=== PATIENT | female | born 1965 | race Caucasian/White ===

== ENCOUNTER 2017-08-23 10:41 | Inpatient (IN) | payer SELFPAY ==
[2017-08-23] MEDS ORDERED: Ondansetron HCl/PF 4 MG/2 ML Vial IVP PRN (12:34)
[2017-08-23] MEDS ORDERED: Ondansetron ODT 4 MG TAB PO PRN (12:34)
[2017-08-23] MEDS ORDERED: Acetaminophen 325 MG TAB PO PRN (12:34)
[2017-08-23] MEDS ORDERED: Artificial Tear Sol 15 ML BOT EA EYE PRN (12:40)
[2017-08-23] MEDS ORDERED: hydrALAZINE 20 MG/ML VIAL SLOW IVP PRN (12:40)
[2017-08-23] MEDS ORDERED: Temazepam 15 MG CAP PO PRN (12:40)
[2017-08-23] MEDS ORDERED: Diabetic Tussin 200 MG/10 ML UDCUP PO PRN (12:40)
[2017-08-23] MEDS ORDERED: Loratadine 10 MG TAB PO PRN (12:40)
[2017-08-23] MEDS ORDERED: Loperamide HCl 2 MG CAP PO PRN (12:40)
[2017-08-23] MEDS ORDERED: Sodium Chloride 0.65% Nasal 44 ML BOT EA NARE PRN (12:40)
[2017-08-23] MEDS ORDERED: Mag-Al 1200 mg/1200 mg/30 ML UDCUP PO PRN (12:40)
[2017-08-23] MEDS ORDERED: Chloraseptic Spray 180 ml Bottle PO PRN (12:40)
[2017-08-23] MEDS ORDERED: Eucerin (Mineral Oil/Petrolatum,White) 30 gm Jar TOP PRN (12:40)
[2017-08-23] MEDS ORDERED: Milk Of Magnesia 30 ML UDCUP PO PRN (12:40)
[2017-08-23] MEDS ORDERED: Labetalol HCl 100 MG/20 ML VIAL SLOW IVP PRN (12:47)
[2017-08-23] MEDS ORDERED: hydrALAZINE 20 MG/ML VIAL SLOW IVP SCH (13:00)
--- NOTE | 2017-08-23 13:55 | MRI ---
BRAIN MRI WITH AND WITHOUT CONTRAST: HISTORY: Left temporal lobe mass. Recent CT. Headache. Altered mental status. Speech impairment, onset 1 w [place] ago. COMPARISON: None. CORRELATION: Noncontrast head CT 08/31/17. TECHNIQUE: Brain MRI is performed with and without intravenous Gadolinium administration. Multisequential, mult iplanar imaging is performed. FINDINGS: There is hemosiderin deposition along the periphery as well as along the enhancing component of the m ass centered in the left temporal lobe. There is vasogenic edema and sulcal effacement involving the left temporal, frontal, and parietal lobes. There is mass effect upon the left lateral ventricle. There is left to right subfalcine herniation of approximately 1.2 cm. There is effacement of the sup rasellar cistern and left ambient cistern. There is mass effect upon the left mid brain. There is l eft uncal herniation. There is peripheral as well as linear enhancement involving aforementioned mas s. This mass measures 5.7 x 4.8 x 4.6 cm. Additional areas of abnormal enhancement are not apprecia kamaljit. Calvarium has a normal T1 marrow signal intensity. Adequate aeration of the sinuses and mastoid air cells. Central arterial flow voids are maintained. Absent restricted diffusion. 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 Areas of peripheral and linear enhancement ar e noted. Some of these areas have associated hemosiderin deposition on the axial gradient echo seque nce. Primary neoplasm (high-grade neoplasm) is favored. POS: [facility]
--- NOTE | 2017-08-23 14:18 | HP ---
ATTENDING PHYSICIAN: Dr. Destin Soto. HISTORY OF PRESENT ILLNESS: The patient is a 52-year-old female with a past medical history of epile psy, managed by Dr. Miranda with Topamax and Tegretol; hypertension; diabetes who presented to the em ergency department for progressively worsening difficulty with her speech as well as some intermitten t confusion noticed by her family for the past week. A CT head was done on arrival, which was notabl e for a large left-sided frontotemporal intracranial mass with surrounding edema, left ventricle effa cement and a midline shift from left to right. The patient was treated with 10 mg of IV Decadron per my recommendations and I am seeing her at the bedside. She is alert. She has difficulty answering my questions secondary to her garbled speech. Pupils are equal and reactive to light. She is noted to have some right-sided facial droop as well as decreased learning designer strength in the right upper extremity . Remainder of her neurologic exam is intact. Her vitals are stable at this time. PAST MEDICAL HISTORY: Epilepsy, managed by Dr. Miranda with Tegretol and Topamax; diabetes; hyperten aren. PAST SURGICAL HISTORY: Tubal ligation, appendectomy, cholecystectomy. SOCIAL HISTORY: The patient does not smoke, drink or use any drugs. She is a former smoker, but lazaro t in 2016. ALLERGIES: The patient is allergic to CODEINE. REVIEW OF SYSTEMS: Per HPI. PHYSICAL EXAMINATION: VITAL SIGNS: Blood pressure 112/63, respiration rate of 15, the patient is 94% on room air, pulse is 65, temperature is 99.3 CONSTITUTIONAL: She appears comfortable in no acute distress. GCS of 14. HEAD: Normocephalic, atraumatic. EYES: PERRLA. Extraocular movements are intact. ENT: Oral mucosa is pink, intact and moist. No deviations at this time is appreciated. NECK: Nontender to palpation. Free active range of motion, no meningismus or nuchal rigidity. RESPIRATORY: She has a regular respiration rate. No evidence of dyspnea. CARDIOVASCULAR: Regular rate and rhythm. MUSCULOSKELETAL: She has good muscle tone to bilateral upper and lower extremities. She has slightl y decreased learning designer strength of the right upper extremity. No other focal motor weakness is appreciated . NEUROLOGIC: GCS of 15. She has a very garbled speech with inappropriate words during her conversati on. She has weakness with learning designer strength in the right upper extremity. Also, slight drift over the r ight upper extremity. ASSESSMENT AND PLAN: The patient presents for progressively worsening speech difficulty some confusi on and right-sided weakness for the past week. Her CT head shows a new large left-sided intracranial mass in the frontal temporal region with surrounding edema and mass effect. I have recommended an M RI with and without contrast for further characterization of this mass. The patient will be admitted to the ICU for close monitoring and q.1 neuro checks. I have consulted Speech Therapy as well for d ysphagia screening before resuming a regular diet. We will continue Decadron 4 mg q.6 hours as well as an H2 andrae. We will continue her current seizure medications. We will monitor blood pressure closely as well. Systolic blood pressure goal of 140. I have discussed this plan with Dr. Soto who is in agreement. Please reach out to Neurosurgery for additional questions or concerns.
--- NOTE | 2017-08-23 14:31 | CON ---
DATE OF CONSULTATION: 08/23/2017 PRIMARY CARE PHYSICIAN: Kimberly Holcomb D.O. REASON FOR ADMISSION: Transfer from [facility] for left brain mass with herniation. HISTORY OF PRESENT ILLNESS: A 52-year-old female who has seizure disorder. She was brought to [facility] for altered mental status. The patient's family member reports that about 1 month, the patient has on and off headache. For the last one week, her intensity and severity of headache is getting worse. She is getting 3-4 times severe headache requiring pain medication, but lately pain medication was not working. For the last 1 week, the patient has also increasing confusion, slurred speech, patient is not comprehending and she is feeling more and more weak. The patient also has increased frequency of seizure for last one week. The patient was completely incoherent, confused and that is why family member took her to [facility] where she was found with a left-sided brain mass and subsequently this patient was transferred to our hospital for higher level of care. The patient had MRI brain and the patient is already admitted under neurosurgeon and we are consulted for medical co-management. Patient denies any fever or chills. She denies any associated nausea, vomiting , diarrhea. She denies any UTI symptoms. She denies any focal motor symptoms or sensory symptoms, but the patient's family member reports that her gait was wobbly lately. She was not maintaining her balance. She did not have any fall or fall related injury. She denies any incontinence of urine or stool. She denies any hematochezia or melena. She denies any abdominal pain. She denies any chest pain, palpitation, shortness of breath, orthopnea, PND. ALLERGIES: CODEINE SULFATE. PCN CURRENT HOME MEDICATIONS: Topamax 100 mg twice daily, Protonix 40 mg p.o. daily , Tegretol 200 mg p.o. twice daily. PAST MEDICAL HISTORY: Epilepsy, gastroesophageal reflux disease, obesity. PAST SURGICAL HISTORY: Appendicectomy, cholecystectomy. PAST PSYCHIATRIC HISTORY: Reviewed and negative. SOCIAL HISTORY: The patient lives at home with family. She is a former smoker. She quit smoking in 2016. She denies any alcohol or other illicit drug abuse. FAMILY HISTORY: No strong family history of premature coronary artery disease, stroke or cancer. REVIEW OF SYSTEMS: The following complete review of systems was negative, unless otherwise mentioned in the HPI or below: Constitutional: Weight loss or gain, ability to conduct usual activities. Skin: Rash, itching. Eyes: Double vision, pain. ENT/Mouth: Nose bleeding, neck stiffness, pain, tenderness. Cardiovascular: Palpitations, dyspnea on exertion, orthopnea. Respiratory: Shortness of breath, wheezing, cough, hemoptysis, fever or night sweats. Gastrointestinal: Poor appetite, abdominal pain, heartburn, nausea, vomiting, constipation, or diarrhea. Genitourinary: Urgency, frequency, dysuria, nocturia. Musculoskeletal: Pain, swelling. Neurologic/Psychiatric: Anxiety, depression. Allergy/Immunologic: Skin rash, bleeding tendency. Please see my HPI for pertinent positive and negative. All other review of systems reviewed and negative except as mentioned in the HPI. Review of system is little bit unreliable due to level of her cognitive status. EMERGENCY ROOM COURSE: Reviewed. PHYSICAL EXAMINATION: VITAL SIGNS: On arrival, blood pressure 131/73, pulse 70, respiratory rate 17, temperature 99.3, saturation 92% on room air, weight 114 kilograms. GENERAL: The patient is currently alert, awake, no obvious acute distress. HEAD: Normocephalic, atraumatic. EYES: Pupils round, reactive to light. Extraocular muscle intact. No nystagmus. ENT: Oropharynx within normal limits. Moist mucous membranes, no oral lesion, no pharyngeal erythema, no exudate. NECK: Supple, no JVD, no thyromegaly, no carotid bruit, no jugular venous distention. LUNGS: Clear to auscultation without any rhonchi or rales. CARDIAC: S1, S2 appears regular. No murmur, no gallop, no rub. ABDOMEN: Soft, bowel sounds present, nontender, nondistended. No organomegaly , no mass, no suprapubic tenderness. BACK: Unremarkable, no CVA tenderness. EXTREMITIES: Upper extremity: Passive movements of all joints are normal. Lower extremities: No edema. Good peripheral pulsation. NEUROLOGIC: Patient opens eyes spontaneously. Her speech appears a little bit slurred. Patient does have pronator drip on the right side and weakness on the right side. Patient also has a little bit sensory deficit on the right arm. No cerebellar sign. No nystagmus, no skew deviation. SKIN: No skin rash. HEMATOLOGIC: No lymphadenopathy. PSYCHIATRIC: Normal affect. SIGNIFICANT LABS: pvc monitor showing normal sinus rhythm without any ischemic changes. MRI brain reviewed. CT brain negative for any acute intracranial process. CBC: WBC 9.2, hemoglobin 12.9, platelet 310. ESR 44. BMP: Sodium 144, potassium 3.8, chloride 108, carbon dioxide 24, anion gap 15, BUN 11, creatinine 0.71, glucose 120, calcium 9.3. Lactic acid 1.8. LFT: AST 32, ALT 28, alkaline phosphatase 83, albumin 4.2, CK-MB 1.0, troponin I less than 0.010. TSH 1.25. Serum drug screen negative. MRI brain reported as primary neoplasm in left temporal lobe. ASSESSMENT: 1. Acute encephalopathy, likely due to intracranial mass with vasogenic edema. 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 3. Hypokalemia. 4. Seizure disorder with epilepsy. 5. Intermittent intractable headache. 6. Morbid obesity. PLAN: The patient is admitted under neurosurgeon to CCU/IMCU. Patient will be given IV fluid with potassium. Patient will be given Decadron 4 mg IV q.6 hourly for vasogenic edema. Continue Tegretol 200 mg twice daily, Topamax 100 mg p.o. twice day. Seizure precaution. Primary team is neurosurgeon and they will decide about surgical treatment for brain mass. Patient will need PT, OT, and neuro check. Eventual plan possibly to rehabilitation. Deep venous thrombosis prophylaxis. Only sequential compression device boots, no Lovenox because of brain mass to prevent any intracranial bleeding. Gastrointestinal prophylaxis, Pepcid 20 mg twice daily. Code status: The patient is FULL CODE. The patient's is surrogate decision maker. Disposition plan based on clinical course. We are expecting patient's stay in hospital more than 2 midnights. Plan of care discussed with the family member at bedside in the emergency room. Thank you for the consult. We will follow up with you while in hospital. SARI
[2017-08-23 15:36] VITALS: BMI 39.3
[2017-08-23] MEDS: NS 0.9% w/ 20 MEQ KCL 1,000 ML/1,000 ML BAG IV SCH (16:07)
[2017-08-23] MEDS: carBAMazepine 200 MG TAB PO SCH (16:08)
[2017-08-23] MEDS: Dexamethasone 4 mg/ml Vial SLOW IVP SCH ×2 (17:39→23:52)
[2017-08-23] MEDS ORDERED: Famotidine/PF 20 mg/2ml Vial SLOW IVP SCH (21:00)
[2017-08-23] MEDS: Topiramate 100 MG TAB PO SCH (21:14)
[2017-08-23] MEDS: Docusate 100 MG CAP PO SCH (21:14)
[2017-08-23] MEDS ORDERED: Famotidine 20 MG TAB PO SCH (21:30)
[2017-08-24] MEDS: NS 0.9% w/ 20 MEQ KCL 1,000 ML/1,000 ML BAG IV SCH ×2 (04:29→17:04)
[2017-08-24] MEDS: Dexamethasone 4 mg/ml Vial SLOW IVP SCH ×3 (05:40→17:04)
[2017-08-24] MEDS: Topiramate 100 MG TAB PO SCH ×2 (08:34→21:14)
[2017-08-24] MEDS: carBAMazepine 200 MG TAB PO SCH ×2 (08:34→17:03)
[2017-08-24] MEDS: Famotidine 20 MG TAB PO SCH ×2 (08:34→21:14)
[2017-08-24] MEDS: Docusate 100 MG CAP PO SCH ×2 (08:34→21:14)
--- NOTE | 2017-08-24 11:20 | PDOC.PN ---
- Subjective Encounter Start Date: 08/24/17 Encounter Start Time: 09:00 -: old records requested/rev Patient seen and examined. pt is confused, has naming problem, No overnight events - Objective MAR Reviewed: Yes Vital Signs & Weight: Vital Signs (12 hours) Temp Pulse Pulse Resp BP BP BP 08/24/17 08:50 70 125/67 08/24/17 08:22 98.2 F 55 L 18 08/24/17 07:10 98.2 F 55 L 18 116/65 08/24/17 04:51 98.7 F 59 L 18 108/68 08/24/17 00:00 98.4 F 54 L 18 127/68 Pulse Ox Pulse Ox 08/24/17 08:50 93 L 08/24/17 08:22 94 L 08/24/17 07:10 92 L 08/24/17 04:51 94 L 08/24/17 00:00 92 L Weight Weight 254 lb I&O: 08/23/17 08/24/17 08/25/17 06:59 06:59 06:59 Intake Total 1200 Output Total 1450 Balance -250 EKG Reviewed by me: Yes (nsr) Phys Exam - Physical Examination Constitutional: NAD HEENT: PERRLA, moist MMs, sclera anicteric Neck: no JVD, supple Respiratory: no wheezing, no rales, no rhonchi Cardiovascular: RRR, no significant murmur, no rub Gastrointestinal: soft, non-tender, no distention, positive bowel sounds Musculoskeletal: no edema, pulses present Neurological: moves all 4 limbs Lymphatic: no nodes Psychiatric: normal affect Skin: no rash, normal turgor Dx/Plan (1) Encephalopathy acute Code(s): G93.40 - ENCEPHALOPATHY, UNSPECIFIED Status: Acute (2) Hypokalemia Code(s): E87.6 - HYPOKALEMIA Status: Acute (3) Mass of temporoparietal region of brain Code(s): G93.9 - DISORDER OF BRAIN, UNSPECIFIED Status: Acute (4) GERD (gastroesophageal reflux disease) Code(s): K21.9 - GASTRO-ESOPHAGEAL REFLUX DISEASE WITHOUT ESOPHAGITIS Status: Chronic (5) Obesity (BMI 30-39.9) Code(s): E66.9 - OBESITY, UNSPECIFIED Status: Chronic (6) Seizure disorder Code(s): G40.909 - EPILEPSY, UNSP, NOT INTRACTABLE, WITHOUT STATUS EPILEPTICUS Status: Chronic - Plan cont current plan of care, plan discussed w/ family * medically stable * continue home medication for seizure * continue decadron * neurosurgeon to decide about surgery for brain mass * medication reviewed as below * symptomatic treatment * discussed with bedside. Review of Systems - Review of Systems Other: unable to review due to encephalopathy - Medications/Allergies Allergies/Adverse Reactions: Allergies Allergy/AdvReac Type Severity Reaction Status Date / Time codeine Allergy Rash Verified 08/23/17 16:06 Penicillins Allergy Verified 08/23/17 15:30 Medications: Current Medications Acetaminophen (Tylenol) 650 mg PO Q4H PRN PRN Reason: Headache/Fever or Pain Hydrocodone Bitart/Acetaminophen ([place] 5/325) 1 tab PO Q4H PRN PRN Reason: Moderate Pain (4-6) Al Hydroxide/Mg Hydroxide (Maalox) 15 ml PO Q4H PRN PRN Reason: Heartburn or Indigestion Artificial Tears (Tears Renewed 15ml Bottle) 0 drop EA EYE PRN PRN PRN Reason: Dry Eyes Carbamazepine (Tegretol) 200 mg PO BID-WM [facility] Last Admin: 08/24/17 08:34 Dose: 200 mg Dexamethasone (Decadron) 4 mg SLOW IVP Q6HR [facility] Last Admin: 08/24/17 05:40 Dose: 4 mg Docusate Sodium (Colace) 100 mg PO BID [facility] Last Admin: 08/24/17 08:34 Dose: 100 mg Famotidine (Pepcid) 20 mg PO Q12HR [facility] Last Admin: 08/24/17 08:34 Dose: 20 mg Guaifenesin (Robitussin Sf) 200 mg PO Q4H PRN PRN Reason: Cough Hydralazine HCl (Apresoline) 10 mg SLOW IVP Q4H PRN PRN Reason: Systolic BP > 180 Potassium Chloride/Sodium Chloride (Ns 0.9% W/ 20 Meq Kcl) 1,000 ml in 1,000 mls @ 75 mls/hr IV .[id number] [facility] Last Admin: 08/24/17 04:29 Dose: 1,000 mls Loperamide HCl (Imodium) 2 mg PO PRN PRN PRN Reason: Diarrhea/Loose Stools Loratadine (Claritin) 10 mg PO DAILYPRN PRN PRN Reason: Sinus Symptoms Magnesium Hydroxide (Milk Of Magnesium) 30 ml PO DAILYPRN PRN PRN Reason: Constipation Mineral Oil/White Petrolatum (Eucerin Cream) 0 gm TOP BIDPRN PRN PRN Reason: Dry Skin Morphine Sulfate (Morphine) 2 mg SLOW IVP Q4H PRN PRN Reason: Breakthrough Pain Ondansetron HCl (Zofran Odt) 4 mg PO Q6H PRN PRN Reason: Nausea/Vomiting Ondansetron HCl (Zofran) 4 mg IVP Q6H PRN PRN Reason: Nausea/Vomiting Phenol (Chloraseptic [place] 180 Ml Bot) 0 ml PO PRN PRN PRN Reason: Sore Throat Sodium Chloride ([place] Nasal [place] 0.65%) 0 ml EA NARE QIDPRN PRN PRN Reason: Nasal Congestion Temazepam (Restoril) 15 mg PO HSPRN PRN PRN Reason: Insomnia Topiramate (Topamax) 100 mg PO BID [facility] Last Admin: 08/24/17 08:34 Dose: 100 mg
[2017-08-24 12:04] LABS: INR-International Normal Ratio 1.1; PTT 28.3 SEC (22.9-36.1); Prothrombin Time 14.2 SEC (12.0-14.7)
[2017-08-25] MEDS: Dexamethasone 4 mg/ml Vial SLOW IVP SCH ×4 (00:39→17:25)
[2017-08-25] MEDS: NS 0.9% w/ 20 MEQ KCL 1,000 ML/1,000 ML BAG IV SCH ×3 (06:16→19:34)
[2017-08-25] MEDS ORDERED: Bacitracin Zinc Ointment 30 gm TUBE ONE (06:59)
[2017-08-25] MEDS ORDERED: Papaverine 60 MG/2 ML VIAL ONE (06:59)
[2017-08-25] MEDS ORDERED: Thrombin 5000 UNITS/5 ML VIAL ONE (06:59)
[2017-08-25] MEDS ORDERED: Levofloxacin 500 mg/D5W 100 ml Premix Bag ONE (07:53)
[2017-08-25] MEDS ORDERED: Clindamycin/D5W 900 mg/50 ml Premix Bag ONE (07:53)
[2017-08-25] MEDS ORDERED: Fentanyl 100 MCG/2 ML VIAL ONE ×2 (08:37→10:24)
[2017-08-25] MEDS: Docusate 100 MG CAP PO SCH ×2 (10:05→21:37)
[2017-08-25] MEDS: Topiramate 100 MG TAB PO SCH ×2 (10:05→21:45)
[2017-08-25] MEDS: carBAMazepine 200 MG TAB PO SCH ×2 (10:05→17:25)
[2017-08-25] MEDS: Famotidine 20 MG TAB PO SCH ×2 (10:05→21:37)
--- NOTE | 2017-08-25 10:56 | OP ---
DATE OF PROCEDURE: 08/25/2017 SURGEON: Destin Soto M.D. HIGH RISK CASE MANAGER: Eleanor Feldman PROCEDURES: Left frontotemporal craniotomy, resection of tumor, operating microscope. PROCEDURE IN DETAIL: The patient was brought to the operating room and intubated. She was positione d supine with the head turned to the right exposing the left frontotemporal region in the shabana cigar head holer. A standard frontotemporal incision was made in the scalp reflected anteriorly. A standard c raniotomy was performed and the dura similarly reflected anteriorly. We made a temporal corticotomy and immediately identified the tumor material. There was no distinct plane between tumor and brain. 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 We entered the cyst cavit y and evacuated proteinaceous cyst debris. Frozen section suggested hypercellular neoplasm. We proc eeded circumferentially to resect tumor, particularly aggressive anteriorly and superficially and les s aggressive deep and posteriorly. All of cyst cavity was evacuated and approximately half of the cy st wall was removed. The brain was then extensively irrigated, immaculate hemostasis was secured. T he dura was reinforced with Duragen artificial dura and the skull was replaced with titanium micropla johann and screws and the wound was then closed in anatomic layers.
[2017-08-25] MEDS ORDERED: HYDROmorphone 0.5 MG/0.5 ML SYRINGE ONE (11:01)
[2017-08-25] MEDS ORDERED: Ondansetron HCl/PF 4 MG/2 ML Vial ONE (15:31)
[2017-08-25] MEDS ORDERED: Lidocaine 1% PF 5 ML VIAL ONE (15:31)
[2017-08-25] MEDS ORDERED: Ketorolac Tromethamine 30 MG/ML VIAL ONE (15:31)
[2017-08-25] MEDS ORDERED: PROPOFOL 200 MG/20 ML VIAL ONE (15:31)
[2017-08-25] MEDS ORDERED: Labetalol 100 MG/20 ML MDV ONE (15:31)
[2017-08-25] MEDS ORDERED: Dexamethasone 20 MG/5 ML VIAL ONE (15:31)
[2017-08-25] MEDS ORDERED: Glycopyrrolate 0.2 MG/ML 5 ML SYRINGE ONE (15:31)
[2017-08-25] MEDS: Morphine 4 MG/ML VIAL SLOW IVP PRN ×2 (15:41→21:36)
--- NOTE | 2017-08-25 21:21 | PDOC.PN ---
- Subjective Encounter Start Date: 08/25/17 Encounter Start Time: 19:15 Patient seen and examined. No new complaints. No overnight events - Objective MAR Reviewed: Yes Vital Signs & Weight: Vital Signs (12 hours) Temp Pulse Ox 08/25/17 19:00 97.9 F 08/25/17 16:00 98.6 F 08/25/17 12:46 94 L 08/25/17 11:39 98 08/25/17 11:20 98.2 F Weight Weight 255 lb 11.2 oz Most Recent Monitor Data Heart Rate from ECG 78 NIBP 131/62 NIBP BP-Mean 81 Respiration from ECG 16 SpO2 97 I&O: 08/24/17 08/25/17 08/26/17 06:59 06:59 06:59 Intake Total 1200 3422 898 Output Total 1450 1850 1040 Balance -250 1572 -142 Result Diagrams: 08/26/17 03:20 08/26/17 03:20 EKG Reviewed by me: Yes (Tele SR) Phys Exam - Physical Examination Constitutional: NAD Respiratory: no wheezing, no rhonchi Cardiovascular: RRR, no rub Gastrointestinal: soft, non-tender, positive bowel sounds Dx/Plan - Plan DVT proph w/SCDs IMPRESSION: 1. 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 Hypokalemia 3. Morbid obesity BMI 40 4. Seizure disorder 5. GERD PLAN: * Cont Steroids * Cont current meds as below * Cont AEDs * Will follow Review of Systems - Review of Systems Respiratory: negative: Cough, Dry, Shortness of Breath, Hemoptysis, SOB with Excertion, Pleuritic Pain, Sputum, Wheezing Cardiovascular: negative: chest pain, palpitations, orthopnea, paroxysmal nocturnal dyspnea, edema, light headedness, other - Medications/Allergies Allergies/Adverse Reactions: Allergies Allergy/AdvReac Type Severity Reaction Status Date / Time codeine Allergy Rash Verified 08/23/17 16:06 Penicillins Allergy Verified 08/23/17 15:30 Medications: Current Medications Acetaminophen (Tylenol) 650 mg PO Q4H PRN PRN Reason: Headache/Fever or Pain Hydrocodone Bitart/Acetaminophen ([place] 5/325) 1 tab PO Q4H PRN PRN Reason: Moderate Pain (4-6) Al Hydroxide/Mg Hydroxide (Maalox) 15 ml PO Q4H PRN PRN Reason: Heartburn or Indigestion Artificial Tears (Tears Renewed 15ml Bottle) 0 drop EA EYE PRN PRN PRN Reason: Dry Eyes Carbamazepine (Tegretol) 200 mg PO BID-[facility] Last Admin: 08/25/17 17:25 Dose: 200 mg Dexamethasone (Decadron) 4 mg SLOW IVP Q6H [facility] Stop: 08/26/17 05:31 Last Admin: 08/25/17 17:25 Dose: 4 mg Dexamethasone (Decadron) 4 mg PO QID [facility] Stop: 08/27/17 21:01 Dexamethasone (Decadron) 4 mg PO TID [facility] Stop: 08/29/17 21:01 Dexamethasone (Decadron) 2 mg PO TID [facility] Stop: 08/30/17 21:01 Dexamethasone (Decadron) 2 mg PO BID [facility] Stop: 09/01/17 21:01 Docusate Sodium (Colace) 100 mg PO BID [facility] Last Admin: 08/25/17 10:05 Dose: Not Given Famotidine (Pepcid) 20 mg PO Q12HR [facility] Last Admin: 08/25/17 10:05 Dose: Not Given Guaifenesin (Robitussin Sf) 200 mg PO Q4H PRN PRN Reason: Cough Hydralazine HCl (Apresoline) 10 mg SLOW IVP Q4H PRN PRN Reason: Systolic BP > 180 Potassium Chloride/Sodium Chloride (Ns 0.9% W/ 20 Meq Kcl) 1,000 ml in 1,000 mls @ 75 mls/hr IV .[id number] [facility] Last Admin: 08/25/17 19:34 Dose: Not Given Loperamide HCl (Imodium) 2 mg PO PRN PRN PRN Reason: Diarrhea/Loose Stools Loratadine (Claritin) 10 mg PO DAILYPRN PRN PRN Reason: Sinus Symptoms Magnesium Hydroxide (Milk Of Magnesium) 30 ml PO DAILYPRN PRN PRN Reason: Constipation Mineral Oil/White Petrolatum (Eucerin Cream) 0 gm TOP BIDPRN PRN PRN Reason: Dry Skin Morphine Sulfate (Morphine) 2 mg SLOW IVP Q4H PRN PRN Reason: Breakthrough Pain Last Admin: 08/25/17 15:41 Dose: 2 mg Ondansetron HCl (Zofran Odt) 4 mg PO Q6H PRN PRN Reason: Nausea/Vomiting Ondansetron HCl (Zofran) 4 mg IVP Q6H PRN PRN Reason: Nausea/Vomiting Phenol (Chloraseptic [employer] 180 Ml Bot) 0 ml PO PRN PRN PRN Reason: Sore Throat Sodium Chloride ([place] Nasal [employer] 0.65%) 0 ml EA NARE QIDPRN PRN PRN Reason: Nasal Congestion Temazepam (Restoril) 15 mg PO HSPRN PRN PRN Reason: Insomnia Topiramate (Topamax) 100 mg PO BID [facility] Last Admin: 08/25/17 10:05 Dose: Not Given
[2017-08-26] MEDS: Dexamethasone 4 mg/ml Vial SLOW IVP SCH ×2 (00:28→05:08)
[2017-08-26] MEDS: NS 0.9% w/ 20 MEQ KCL 1,000 ML/1,000 ML BAG IV SCH (00:33)
[2017-08-26 03:32] LABS: Hemoglobin 10.7 g/dL (12.0-16.0); Platelet Count 304 thou/uL (130-400)
[2017-08-26 03:41] LABS: Albumin 3.7 g/dL (3.5-5.0); Anion Gap 8 mmol/L (10-20); BUN (Urea Nitrogen) 13 mg/dL (9.8-20.1); Calc. Creatinine Clearance 176 mL/min (70-130); Calcium 8.7 mg/dL (7.8-10.44); Carbon Dioxide 25 mmol/L (22-29); Chloride 111 mmol/L (98-107); Estimated GFR-MDRD Greater than 90; Glucose 123 mg/dL (70-105); Magnesium 2.1 mg/dL (1.6-2.6); Phosphorus 2.9 mg/dL (2.3-4.7); Potassium 3.9 mmol/L (3.5-5.1); Sodium 140 mmol/L (136-145)
[2017-08-26] MEDS: Morphine 4 MG/ML VIAL SLOW IVP PRN (03:45)
[2017-08-26] MEDS: carBAMazepine 200 MG TAB PO SCH ×2 (09:03→17:32)
[2017-08-26] MEDS: Docusate 100 MG CAP PO SCH ×2 (09:03→20:06)
[2017-08-26] MEDS: Famotidine 20 MG TAB PO SCH ×2 (09:03→20:06)
[2017-08-26] MEDS: Topiramate 100 MG TAB PO SCH ×2 (09:04→20:06)
[2017-08-26] MEDS: Dexamethasone 4 MG TAB PO SCH ×4 (09:04→20:07)
[2017-08-26] MEDS: HYDROcodone/Acetaminophen 5/325 mg Tablet PO PRN ×3 (10:41→20:07)
--- NOTE | 2017-08-26 13:08 | PDOC.PN ---
- Subjective Encounter Start Date: 08/26/17 Encounter Start Time: 09:00 Patient seen and examined. No new complaints. No overnight events. No new focal deficits or seizures. - Objective MAR Reviewed: Yes Vital Signs & Weight: Vital Signs (12 hours) Temp Pulse Resp BP Pulse Ox 08/26/17 12:03 97.1 F L 74 15 146/67 H 91 L 08/26/17 09:45 98.0 F 74 20 130/83 92 L 08/26/17 08:05 93 L 08/26/17 08:00 97.8 F 65 17 95 08/26/17 04:00 98.4 F Weight Weight 255 lb 11.2 oz Most Recent Monitor Data Heart Rate from ECG 73 NIBP 153/79 NIBP BP-Mean 108 Respiration from ECG 18 SpO2 89 I&O: 08/25/17 08/26/17 08/27/17 06:59 06:59 06:59 Intake Total 3422 1967 300 Output Total 1850 6242 530 Balance 1572 -748 -230 Result Diagrams: 08/26/17 03:20 08/26/17 03:20 Additional Labs: Accuchecks 08/26/17 11:04 POC Glucose 119 H EKG Reviewed by me: Yes (Tele SR) Phys Exam - Physical Examination Constitutional: NAD Respiratory: no wheezing, no rhonchi Cardiovascular: RRR, no rub Gastrointestinal: soft, non-tender, positive bowel sounds Musculoskeletal: no edema Neurological: moves all 4 limbs Dx/Plan - Plan DVT proph w/SCDs IMPRESSION: 1. 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 Hypokalemia - replaced 3. Morbid obesity BMI 40 4. Seizure disorder - on AED 5. GERD - on Pepcid PLAN: * Cont Steroids * Cont current meds as below * Cont AEDs * Will follow * Cont current meds as below Review of Systems - Review of Systems Respiratory: negative: Cough, Dry, Shortness of Breath, Hemoptysis, SOB with Excertion, Pleuritic Pain, Sputum, Wheezing Cardiovascular: negative: chest pain, palpitations, orthopnea, paroxysmal nocturnal dyspnea, edema, light headedness, other - Medications/Allergies Allergies/Adverse Reactions: Allergies Allergy/AdvReac Type Severity Reaction Status Date / Time codeine Allergy Rash Verified 08/23/17 16:06 Penicillins Allergy Verified 08/23/17 15:30 Medications: Current Medications Acetaminophen (Tylenol) 650 mg PO Q4H PRN PRN Reason: Headache/Fever or Pain Hydrocodone Bitart/Acetaminophen ([place] 5/325) 1 tab PO Q4H PRN PRN Reason: Moderate Pain (4-6) Last Admin: 08/26/17 10:41 Dose: 1 tab Al Hydroxide/Mg Hydroxide (Maalox) 15 ml PO Q4H PRN PRN Reason: Heartburn or Indigestion Artificial Tears (Tears Renewed 15ml Bottle) 0 drop EA EYE PRN PRN PRN Reason: Dry Eyes Carbamazepine (Tegretol) 200 mg PO BID-[facility] Last Admin: 08/26/17 09:03 Dose: 200 mg Dexamethasone (Decadron) 4 mg PO QID [facility] Stop: 08/27/17 21:01 Last Admin: 08/26/17 09:04 Dose: 4 mg Dexamethasone (Decadron) 4 mg PO TID [facility] Stop: 08/29/17 21:01 Dexamethasone (Decadron) 2 mg PO TID [facility] Stop: 08/30/17 21:01 Dexamethasone (Decadron) 2 mg PO BID [facility] Stop: 09/01/17 21:01 Docusate Sodium (Colace) 100 mg PO BID [facility] Last Admin: 08/26/17 09:03 Dose: 100 mg Famotidine (Pepcid) 20 mg PO Q12HR [facility] Last Admin: 08/26/17 09:03 Dose: 20 mg Guaifenesin (Robitussin Sf) 200 mg PO Q4H PRN PRN Reason: Cough Hydralazine HCl (Apresoline) 10 mg SLOW IVP Q4H PRN PRN Reason: Systolic BP > 180 Loperamide HCl (Imodium) 2 mg PO PRN PRN PRN Reason: Diarrhea/Loose Stools Loratadine (Claritin) 10 mg PO DAILYPRN PRN PRN Reason: Sinus Symptoms Magnesium Hydroxide (Milk Of Magnesium) 30 ml PO DAILYPRN PRN PRN Reason: Constipation Mineral Oil/White Petrolatum (Eucerin Cream) 0 gm TOP BIDPRN PRN PRN Reason: Dry Skin Morphine Sulfate (Morphine) 2 mg SLOW IVP Q4H PRN PRN Reason: Breakthrough Pain Last Admin: 08/26/17 03:45 Dose: 2 mg Ondansetron HCl (Zofran Odt) 4 mg PO Q6H PRN PRN Reason: Nausea/Vomiting Ondansetron HCl (Zofran) 4 mg IVP Q6H PRN PRN Reason: Nausea/Vomiting Phenol (Chloraseptic [place] 180 Ml Bot) 0 ml PO PRN PRN PRN Reason: Sore Throat Sodium Chloride ([place] Nasal [place] 0.65%) 0 ml EA NARE QIDPRN PRN PRN Reason: Nasal Congestion Temazepam (Restoril) 15 mg PO HSPRN PRN PRN Reason: Insomnia Topiramate (Topamax) 100 mg PO BID [facility] Last Admin: 08/26/17 09:04 Dose: 100 mg
[2017-08-27] MEDS: HYDROcodone/Acetaminophen 5/325 mg Tablet PO PRN ×3 (02:20→13:15)
[2017-08-27] MEDS: Dexamethasone 4 MG TAB PO SCH ×4 (08:20→20:44)
[2017-08-27] MEDS: Famotidine 20 MG TAB PO SCH ×2 (08:20→20:42)
[2017-08-27] MEDS: Topiramate 100 MG TAB PO SCH ×2 (08:20→20:42)
[2017-08-27] MEDS: Docusate 100 MG CAP PO SCH ×2 (08:20→20:42)
[2017-08-27] MEDS: carBAMazepine 200 MG TAB PO SCH ×2 (08:20→18:04)
--- NOTE | 2017-08-27 20:22 | PDOC.PN ---
- Subjective Encounter Start Date: 08/27/17 Encounter Start Time: 09:00 Patient seen and examined. No new complaints. No overnight events - Objective MAR Reviewed: Yes Vital Signs & Weight: Vital Signs (12 hours) Temp Pulse Resp BP Pulse Ox 08/27/17 15:05 97.9 F 68 20 138/80 97 08/27/17 11:05 97.5 F L 65 18 106/70 95 Weight Weight 255 lb 11.2 oz Most Recent Monitor Data Heart Rate from ECG 73 NIBP 153/79 NIBP BP-Mean 108 Respiration from ECG 18 SpO2 89 I&O: 08/26/17 08/27/17 08/28/17 06:59 06:59 06:59 Intake Total 1967 1295 500 Output Total 2715 2930 500 Balance -748 -1635 0 Result Diagrams: 08/26/17 03:20 08/26/17 03:20 Phys Exam - Physical Examination Constitutional: NAD Respiratory: no wheezing, no rhonchi Cardiovascular: RRR, no rub Gastrointestinal: soft, positive bowel sounds Musculoskeletal: no edema Neurological: moves all 4 limbs Dx/Plan - Plan DVT proph w/SCDs IMPRESSION: 1. 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 Hypokalemia - replaced 3. Morbid obesity BMI 40 4. Seizure disorder - on AED 5. GERD - on Pepcid PLAN: * Cont Steroids and AEDs * Cont current meds as below * GI prophylaxis * Will follow * Ambulate Review of Systems - Review of Systems Respiratory: negative: Cough, Dry, Shortness of Breath, Hemoptysis, SOB with Excertion, Pleuritic Pain, Sputum, Wheezing Cardiovascular: negative: chest pain, palpitations, orthopnea, paroxysmal nocturnal dyspnea, edema, light headedness, other - Medications/Allergies Allergies/Adverse Reactions: Allergies Allergy/AdvReac Type Severity Reaction Status Date / Time codeine Allergy Rash Verified 08/23/17 16:06 Penicillins Allergy Verified 08/23/17 15:30 Medications: Current Medications Acetaminophen (Tylenol) 650 mg PO Q4H PRN PRN Reason: Headache/Fever or Pain Hydrocodone Bitart/Acetaminophen ([place] 5/325) 1 tab PO Q4H PRN PRN Reason: Moderate Pain (4-6) Last Admin: 08/27/17 13:15 Dose: 1 tab Al Hydroxide/Mg Hydroxide (Maalox) 15 ml PO Q4H PRN PRN Reason: Heartburn or Indigestion Artificial Tears (Tears Renewed 15ml Bottle) 0 drop EA EYE PRN PRN PRN Reason: Dry Eyes Carbamazepine (Tegretol) 200 mg PO BID-[facility] Last Admin: 08/27/17 18:04 Dose: 200 mg Dexamethasone (Decadron) 4 mg PO QID [facility] Stop: 08/27/17 21:01 Last Admin: 08/27/17 18:04 Dose: 4 mg Dexamethasone (Decadron) 4 mg PO TID [facility] Stop: 08/29/17 21:01 Dexamethasone (Decadron) 2 mg PO TID [facility] Stop: 08/30/17 21:01 Dexamethasone (Decadron) 2 mg PO BID [facility] Stop: 09/01/17 21:01 Docusate Sodium (Colace) 100 mg PO BID [facility] Last Admin: 08/27/17 08:20 Dose: 100 mg Famotidine (Pepcid) 20 mg PO Q12HR [facility] Last Admin: 08/27/17 08:20 Dose: 20 mg Guaifenesin (Robitussin Sf) 200 mg PO Q4H PRN PRN Reason: Cough Hydralazine HCl (Apresoline) 10 mg SLOW IVP Q4H PRN PRN Reason: Systolic BP > 180 Loperamide HCl (Imodium) 2 mg PO PRN PRN PRN Reason: Diarrhea/Loose Stools Loratadine (Claritin) 10 mg PO DAILYPRN PRN PRN Reason: Sinus Symptoms Magnesium Hydroxide (Milk Of Magnesium) 30 ml PO DAILYPRN PRN PRN Reason: Constipation Mineral Oil/White Petrolatum (Eucerin Cream) 0 gm TOP BIDPRN PRN PRN Reason: Dry Skin Morphine Sulfate (Morphine) 2 mg SLOW IVP Q4H PRN PRN Reason: Breakthrough Pain Last Admin: 08/26/17 03:45 Dose: 2 mg Ondansetron HCl (Zofran Odt) 4 mg PO Q6H PRN PRN Reason: Nausea/Vomiting Ondansetron HCl (Zofran) 4 mg IVP Q6H PRN PRN Reason: Nausea/Vomiting Phenol (Chloraseptic [place] 180 Ml Bot) 0 ml PO PRN PRN PRN Reason: Sore Throat Sodium Chloride ([place] Nasal [place] 0.65%) 0 ml EA NARE QIDPRN PRN PRN Reason: Nasal Congestion Temazepam (Restoril) 15 mg PO HSPRN PRN PRN Reason: Insomnia Topiramate (Topamax) 100 mg PO BID [facility] Last Admin: 08/27/17 08:20 Dose: 100 mg
[2017-08-28 07:41] VITALS: BP 123/68; TEMP 97.6
[2017-08-28] MEDS: carBAMazepine 200 MG TAB PO SCH (08:01)
[2017-08-28] MEDS: HYDROcodone/Acetaminophen 5/325 mg Tablet PO PRN (08:01)
[2017-08-28] MEDS: Docusate 100 MG CAP PO SCH (08:01)
[2017-08-28] MEDS: Topiramate 100 MG TAB PO SCH (08:01)
[2017-08-28] MEDS ORDERED: Dexamethasone 4 MG TAB PO SCH (09:00)
[2017-08-28] MEDS: Famotidine 20 MG TAB PO SCH (10:46)
--- NOTE | 2017-08-28 15:11 | PDOC.PN ---
- Subjective Encounter Start Date: 08/28/17 Encounter Start Time: 07:00 Patient seen and examined. No new complaints. No overnight events - Objective MAR Reviewed: Yes Vital Signs & Weight: Vital Signs (12 hours) Temp Pulse Resp BP Pulse Ox 08/28/17 08:00 97.6 F 64 16 95 08/28/17 07:26 97.6 F 64 16 123/68 95 08/28/17 03:56 97.9 F 63 16 119/78 96 Weight Weight 255 lb 11.2 oz Most Recent Monitor Data Heart Rate from ECG 73 NIBP 153/79 NIBP BP-Mean 108 Respiration from ECG 18 SpO2 89 I&O: 08/27/17 08/28/17 08/29/17 06:59 06:59 06:59 Intake Total 1295 500 Output Total 2930 500 Balance -1635 0 Result Diagrams: 08/26/17 03:20 08/26/17 03:20 Phys Exam - Physical Examination Constitutional: NAD Respiratory: no wheezing Neurological: moves all 4 limbs Dx/Plan - Plan DVT proph w/SCDs IMPRESSION: 1. 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 Hypokalemia - replaced 3. Morbid obesity BMI 40 4. Seizure disorder - on AED 5. GERD - on Pepcid PLAN: * Cont current meds as below * GI prophylaxis * Will follow * Cont Steroids and AEDs Review of Systems - Review of Systems Respiratory: negative: Cough, Dry, Shortness of Breath, Hemoptysis, SOB with Excertion, Pleuritic Pain, Sputum, Wheezing Cardiovascular: negative: chest pain, palpitations, orthopnea, paroxysmal nocturnal dyspnea, edema, light headedness, other - Medications/Allergies Allergies/Adverse Reactions: Allergies Allergy/AdvReac Type Severity Reaction Status Date / Time codeine Allergy Rash Verified 08/23/17 16:06 Penicillins Allergy Verified 08/23/17 15:30
[2017-08-30] MEDS ORDERED: Dexamethasone 1 MG TAB PO SCH (09:00)
[2017-08-31] MEDS ORDERED: Dexamethasone 1 MG TAB PO SCH (09:00)
== END 2017-08-28 10:00 | disposition home or self-care (01) | DRG 25 ==
LOC: ERS 10:41 → IMCU/EMU 13:34 → CCU 08-25 10:51 → SURG A 08-26 09:57
PROVIDERS: ADMIT Neurological Surgery; ATTEND Neurological Surgery
PROC: 00B70ZZ Excision of Cerebral Hemisphere, Open Approach (ICD-10-PCS; principal; 2017-08-25)
DX: D49.6 Neoplasm of unspecified behavior of brain (principal); G93.40 Encephalopathy, unspecified; Z68.41 Body mass index [BMI] 40.0-44.9, adult; R60.0 Localized edema; E87.6 Hypokalemia; E66.01 Morbid (severe) obesity due to excess calories; G40.909 Epilepsy, unspecified, not intractable, without status epilepticus; K21.9 Gastro-esophageal reflux disease without esophagitis; Z88.5 Allergy status to narcotic agent; Z88.0 Allergy status to penicillin; Z90.49 Acquired absence of other specified parts of digestive tract; R51 Headache
CPT/HCPCS: 36415; 36416; 70553; 80069; 83735; 85014; 85018; 85049; 85610; 85730; 86850; 86900; 86901; 88307; 88331; 88341; 88342; 88360; C1713; G8978-GP-CL; G8979-GP-CJ; G8987-GO-CJ; G8988-GO-CI; G8996-GN-CJ; G8997-GN-CI; J1100; J1170; J1885; J1956; J2001; J2270; J2405; J2440; J2704; J3010; J3490; J8540